=== PATIENT | female | born 1970 | race Caucasian/White ===

== ENCOUNTER 2017-02-08 19:38 | Emergency (ER) | payer OTHER ==
[~2017-02-08] VITALS: Ht 149.9 cm; Wt 51.7 kg
[~2017-02-08 19:38] MED LIST: AUGMENTIN 875875 MG PO; DOXYCYCLINE MO100 MG PO; MOTRIN600 MG PO; TYLENOL WITH C1 EACH PO; VICODIN5-300 PO; ZOFRAN4 M1 PO
--- NOTE | 2017-02-08 19:54 | ED HAND/WRIST INJURY COMPLAINT ---
See Addendum History of Present Illness General Chief Complaint: Hand or Wrist Injury Stated Complaint: PT CUT HER LEFT HAND Source: patient Exam Limitations: no limitations Vital Signs & Intake/Output Vital Signs & Intake/Output Vital Signs Date Time Temp Pulse Resp B/P B/P Pulse O2 O2 Flow FiO2 Mean Ox Delivery Rate 02/09 2028 96.1 65 18 100/60 97 Room Air 02/08 1942 98.2 68 14 80/46 96 Room Air Room Air Allergies Coded Allergies: Penicillins (Intermediate, HIVES 02/08/17) latex (Mild, RASH 02/08/17) Reconcile Medications Amoxicillin/Clavulanate Potass (Amox-Clav 875-125 MG Tablet) 875 MG-125 MG TABLET 1 TAB PO BID INFECTION DOXYCYCLINE MONOHYDRATE (Doxycycline Monohydrate) 100 MG CAP 1 TAB PO BID PROPHYLAXIS HYDROCODONE/ACETAMINOPHEN (Hydrocodon-Acetaminophen 5-325) 5 MG-325 MG TABLET 1 TAB PO Q6 PRN PAIN Ibuprofen (Motrin) 600 MG TAB 1 TAB PO Q6 PRN PAIN Ondansetron (Zofran Odt) 4 MG TAB.RAPDIS 1 TAB PO Q4-6 PRN NAUSEA Tylenol With Codeine (Tylenol With Codeine #3 Tablet) 1 EACH TABLET 1 TAB PO Q6HR PRN BREAKTHROUGH PAIN Triage Note: PT TO ED FOR LAC TO LEFT INDEX FINGER S/P CUTTING FROZEN FISH WITH KNIFE. PT UNSURE OF LAST TETANUS. PT'S BP 80/46 AND FEELS LIKE SHE COULD PASS OUT. PT TAKEN TO [facility]. Triage Nurses Notes Reviewed? yes Occurred: just prior to arrival Duration: minute(s): (45) Timing: no prior history Injury Environment: home Severity: moderate Severity Numbers: 6 Pain/Injury Location: Left: 2nd finger. Context: laceration Method of Injury: laceration No Modifying Factors: none HPI: Patient is a 46-year-old female presenting to the emergency department with chief complaint of laceration to left pointer finger that happened just prior to arrival. It happened from a kitchen knife. Unsure of tetanus immunization. Denies any numbness or tingling. Denies taking anything to help with symptoms prior to arrival. She reports that when she got to the emergency department sitting in the waiting room she became lightheaded and felt like she was given passout. She took her blood pressure and it was low. She is now feeling improved since laying on the stretcher. (CARRI BRADLEY) Past History Travel History Traveled to [place] past 21 day No Medical History Any Pertinent Medical History? 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 No (CARRI BRADLEY) Review of Systems Review of Systems Constitutional: Reports: no symptoms. Comments Review of systems: See HPI, All other systems negative. Constitutional, no chills fever or weight loss HEENT: No visual changes no sore throat no congestion Cardiovascular: No chest pain ,palpitation , orthopnea or ankle swelling Skin, no jaundice no rashes Respiratory: No dyspnea cough sputum or hemoptysis GI: No nausea no vomiting : No dysuria No hematuria Muscle skeletal: no back pain, no neck pain, Neurologic: No numbness no confusion Psych: No stress anxiety or depression,. Heme/endocrine: No bruising no bleeding no polyuria or polydipsia Immunology: No splenectomy or history of AIDS (CARRI BRADLEY) Physical Exam Physical Exam General Appearance: well developed/nourished, no apparent distress, alert, awake , comfortable Hand Left: lacerations Hand Right: normal inspection, normal range of motion Comments: Well-developed well-nourished person in no acute distress HEENT: Nose is atraumatic. Neck: Normal inspection Cardiovascular: Regular rate and rhythms no murmurs rubs or gallops, normal JVP Respiratory: Chest nontender. No respiratory distress. Extremity: No edema, full range of motion of all digits on the upper extremities bilaterally. Radial pulses are 2+ bilaterally. Capillary refill is intact in upper extremity bilaterally. Neuro: Alert oriented x3, motor sensory normal Skin: Linear, subcutaneous well approximating laceration approximately 1 cm ins size located at the distal tip of the left pointer finger. No surrounding erythema or edema. No foreign body. Psych: Mood and affect is normal, memory and judgment is normal. (CARRI BRADLEY) Progress Differential Diagnosis: ORTHOSTATIC HYPOTENSION, VASOVAGAL EPISODE, LACERATION, ABRASION, CONTUSION, NEED FOR TETANUS PROPHYLAXIS Plan of Care: Current Medications Sig/Arely Start time Last Medication Dose Stop Time Status Admin Lidocaine 20 ML ONCE ONE 02/09 2000 UNVr (Lidocaine 1%) 02/08 2001 Tetanus/Diphtheria 0.5 ML ONCE ONE 02/09 2000 UNVr Toxoids Adsorbed 02/08 2001 (Decavac) Comments: Blood pressure is normalizing. Likely vasovagal secondary to laceration. Patient will be discharge and follow-up with PCP For suture removal in 7-10 days. She'll return for any worsening symptoms or concerns. She received her IM tetanus here. Also given ibuprofen 600 mg for pain. (CARRI BRADLEY) Departure Departure Time of Disposition: 2025 Disposition: HOME OR SELF CARE Condition: Stable Clinical Impression Primary Impression: Laceration Referrals: EMMA BAGLEY MD (PCP/Family) Additional Instructions: RETURN TO ER IN 7-10 DAYS FOR SUTURE REMOVAL. KEEP CLEAN AND DRY. TAKE MOTRIN OR TYLENOL DIRECTED FOR PAIN OVER THE COUNTER. RETURN FOR WORSENING SYMPTOMS OR CONCERNS Departure Forms: Customer Survey General Discharge Information (CARRI BRADLEY) PA/[employer]ACHINE [employer] Co-Sign Statement Statement: ED Attending supervision documentation- [] I saw and evaluated the patient. I have also reviewed all the pertinent lab results and diagnostic results. I agree with the findings and the plan of care as documented in the PA's/[employer]'s documentation. [X] I have reviewed the ED Record and agree with the PA's/SH[employer] M[employer]'s documentation. [] Additions or exceptions (if any) to the PAs/[employer] M[employer]'s note and plan are summarized below: [] (CAMILO SILVA,AMANDA Horn)
[2017-02-08 20:28] VITALS: BP 100/60
== END 2017-02-08 20:47 ==
LOC: ERH 19:38
DX: S61.211A Laceration without foreign body of left index finger without damage to nail, initial encounter (principal); W26.0XXA Contact with knife, initial encounter; Y93.G1 Activity, food preparation and clean up